=== PATIENT | female | born 1970 | race Hispanic/Latino ===

== ENCOUNTER 2020-03-06 23:07 | Emergency (ER) | payer MEDICAID, SELFPAY ==
[2020-03-06] MEDS ORDERED: ASPIRIN 325 MG TAB PO ONE (23:15)
[2020-03-06 23:37] LABS: Basophils # (Auto) 0.1 K/mm3 (0.0-0.1); Basophils % (Auto) 0.7 % (0.0-1.8); Eosinophils # (Auto) 0.3 K/mm3 (0.0-0.4); Eosinophils % (Auto) 2.5 % (0.0-4.3); Hematocrit 43.7 % (30.3-42.9); Lymphocytes # (Auto) 2.7 K/mm3 (1.2-5.4); Lymphocytes % (Auto) 24.5 % (13.4-35.0); Mean Corpuscular HGB Conc 34 % (30-34); Mean Corpuscular Volume 90 fl (79-97); Monocytes # (Auto) 0.8 K/mm3 (0.0-0.8); Monocytes % (Auto) 7.1 % (0.0-7.3); Platelet Count 223 K/mm3 (140-440); Red Blood Count 4.87 M/mm3 (3.65-5.03)
[2020-03-06 23:53] LABS: BUN/Creatinine Ratio 14; Blood Urea Nitrogen 11 mg/dL (7-17); Calcium 9.1 mg/dL (8.4-10.2); Hemolysis Index 18
--- NOTE | 2020-03-07 00:37 | XRay Report ---
CHEST 1 VIEW INDICATION: Chest Pain COMPARISON: 07/20/2015 FINDINGS: Support devices: None Heart: Normal Lungs/Pleura: No acute pulmonary or pleural findings. IMPRESSION: 1. No acute disease. No interval change. Signer Name: Koffi Nicole MD Signed: 03/07/2020 12:32 AM Workstation Name: [id number]
[2020-03-07] MEDS ORDERED: HYDROmorphone 1 MG/1 ML INJ IM ONE (07:54)
[2020-03-07] MEDS ORDERED: INSULIN REGULAR, HUMAN 100 UNIT/ML 3ML VIAL SUB-Q ONE (07:54)
[2020-03-07 08:08] VITALS: BP 159/62
--- NOTE | 2020-03-07 08:08 | Emergency Department Report ---
ED General Adult HPI - General Chief complaint: Pain General Stated complaint: LEFT LEG PAIN/CHEST PAIN PUI?: No Time Seen by Provider: 03/07/20 07:25 Source: patient, family, RN notes reviewed, old records reviewed Mode of arrival: Wheelchair Limitations: No Limitations, Physical Limitation - History of Present Illness Initial comments: The patient was evaluated in the emergency department for symptoms described in the history of present illness. He/she was evaluated in the context of the global COVID-19 pandemic, which necessitated consideration that the patient might be at risk for infection with the virus that causes COVID-19. Institutional protocols and algorithms that pertain to the evaluation of patients at risk for COVID-19 are in a state of rapid change based on information released by regulatory bodies including the CDC and federal and state organizations. These policies and algorithms were followed during the patient's care in the emergency department. Please note that these policies, procedures and recommendations changed on a rapid basis. Patient is a 49-year-old female. Past medical history includes heart disease, stent, diabetes, hypertension, hyperlipidemia, history of peripheral artery disease, status post left lower extremity above-knee amputation, episodes of phantom pain, history of cardiac catheterization in 2013. She typically follows with Dr. Knowles. Her primary care doctor is in [facility], and she reports needing a local primary care doctor. She presents to the ER today with 3 complaints. Her first complaint is typical phantom limb pain in her left lower extremity. This is sharp throbbing aching and burning, has been present since yesterday. She reports getting phantom limb pain intermittently every couple weeks. This is similar to prior episodes. Her next complaint is nontraumatic nonradiating left-sided shoulder throbbing and pain. This is been present for a few days. The patient is right-hand dominant. The pain is aching, and increases with range of motion and decreases with rest. Her next complaint is scaly and itchy rash to her bilateral palms, present for 3 months. There is no plantar foot rash that she is aware of. She denies a history of syphilis. She is currently trying to get an appointment with a local final inspector motorcyles, but reports that the group that she try to follow-up with would not take her insurance. The patient denies headache, neck pain, chest pain, abdominal pain, shortness of breath, urinary symptoms, DVT, pulmonary embolism risk factors. -: days(s), month(s) Location: left, right, upper extremity, lower extremity Severity scale (0 -10): 3 Quality: other Consistency: other Improves with: other Worsens with: other Associated Symptoms: other - Related Data Home Medications Medication Instructions Recorded Confirmed Last Taken Citalopram [Celexa] 20 mg PO QDAY 02/27/14 05/13/16 1 Day Ago ~05/12/16 20 Insulin Glargine [Lantus VIAL] 50 unit SUB-Q QHS 02/27/14 05/13/16 1 Day Ago ~05/12/16 50 Metoprolol/Hydrochlorothiazide 1 tab PO QDAY 02/27/14 05/13/16 1 Day Ago [Metoprolol HCTZ 50-25 mg TAB] ~05/12/16 1 Glipizide/Metformin HCl 1 each PO DAILY 05/13/16 05/13/16 Unknown [glipiZIDE-Metformin 5-500 mg] Previous Rx's Medication Instructions Recorded Last Taken Type Aspirin EC [Ecotrin] 325 mg PO QDAY #30 tablet 03/03/14 1 Day Ago Rx ~05/12/16 325 Clopidogrel [Plavix] 75 mg PO QDAY #30 tablet 03/03/14 1 Day Ago Rx ~05/12/16 75 Insulin Glargine [Lantus VIAL] 25 units SUB-Q BID #1 vial 03/03/14 1 Day Ago Rx ~05/12/16 25 Insulin Glulisine [Apidra] 10 units SUB-Q AC #1 vial 03/03/14 1 Day Ago Rx ~05/12/16 10 Metoprolol [Lopressor TAB] 25 mg PO BID #60 tablet 03/03/14 1 Day Ago Rx ~05/12/16 25 Rosuvastatin (Nf) [Crestor] 40 mg PO QHS #30 tablet 03/03/14 1 Day Ago Rx ~05/12/16 40 lisinopriL [Zestril TAB] 5 mg PO QDAY #30 tablet 03/03/14 1 Day Ago Rx ~05/12/16 5 Triamcinolone 0.1% [Kenalog 0.1% 1 applic TP TID #1 tube 03/07/20 Unknown Rx CREAM] Allergies Allergy/AdvReac Type Severity Reaction Status Date / Time Iodinated Contrast Media Allergy Anaphylaxis Verified 07/20/15 15:42 [Iodinated Contrast Media - IV Dye] warfarin [Warfarin] Allergy Hives Verified 07/20/15 15:42 ED Review of Systems ROS: Stated complaint: LEFT LEG PAIN/CHEST PAIN Other details as noted in HPI Constitutional: see HPI. denies: fever, malaise ENT: denies: epistaxis Respiratory: denies: cough, shortness of breath, wheezing Cardiovascular: denies: chest pain, palpitations Endocrine: no symptoms reported Gastrointestinal: denies: abdominal pain, nausea, diarrhea Genitourinary: denies: urgency, dysuria, discharge Musculoskeletal: arthralgia, myalgia. denies: joint swelling Skin: rash, lesions Neurological: denies: weakness, numbness, paresthesias Hematological/Lymphatic: denies: easy bleeding ED Past Medical Hx - Past Medical History Hx Hypertension: Yes Hx Heart Attack/AMI: Yes Hx Diabetes: Yes Hx Deep Vein Thrombosis: Yes Hx Arthritis: Yes Additional medical history: HIGH CHOLESTEROL. VASCULAR DISEASE. CAD - Surgical History Hx Coronary Stent: Yes (X 2) Hx Cholecystectomy: Yes Additional Surgical History: . Bypass- for blood clot in leg. LEFT AKA - Social History Smoking Status: Current Every Day Smoker Substance Use Type: None - Medications Home Medications: Home Medications Medication Instructions Recorded Confirmed Last Taken Type Citalopram [Celexa] 20 mg PO QDAY 02/27/14 05/13/16 1 Day Ago History ~05/12/16 20 Insulin Glargine [Lantus VIAL] 50 unit SUB-Q QHS 02/27/14 05/13/16 1 Day Ago History ~05/12/16 50 Metoprolol/Hydrochlorothiazide 1 tab PO QDAY 02/27/14 05/13/16 1 Day Ago History [Metoprolol HCTZ 50-25 mg TAB] ~05/12/16 1 Aspirin EC [Ecotrin] 325 mg PO QDAY #30 tablet 03/03/14 05/13/16 1 Day Ago Rx ~05/12/16 325 Clopidogrel [Plavix] 75 mg PO QDAY #30 tablet 03/03/14 05/13/16 1 Day Ago Rx ~05/12/16 75 Insulin Glargine [Lantus VIAL] 25 units SUB-Q BID #1 vial 03/03/14 05/13/16 1 Day Ago Rx ~05/12/16 25 Insulin Glulisine [Apidra] 10 units SUB-Q AC #1 vial 03/03/14 05/13/16 1 Day Ago Rx ~05/12/16 10 Metoprolol [Lopressor TAB] 25 mg PO BID #60 tablet 03/03/14 05/13/16 1 Day Ago Rx ~05/12/16 25 Rosuvastatin (Nf) [Crestor] 40 mg PO QHS #30 tablet 03/03/14 05/13/16 1 Day Ago Rx ~05/12/16 40 lisinopriL [Zestril TAB] 5 mg PO QDAY #30 tablet 03/03/14 05/13/16 1 Day Ago Rx ~05/12/16 5 Glipizide/Metformin HCl 1 each PO DAILY 05/13/16 05/13/16 Unknown History [glipiZIDE-Metformin 5-500 mg] Triamcinolone 0.1% [Kenalog 0.1% 1 applic TP TID #1 tube 03/07/20 Unknown Rx CREAM] ED Physical Exam - General Limitations: No Limitations General appearance: alert, in no apparent distress - Head Head exam: Present: atraumatic, normocephalic - Eye Eye exam: Present: normal appearance, EOMI. Absent: nystagmus - ENT ENT exam: Present: normal exam, normal orophraynx, mucous membranes moist, normal external ear exam - Neck Neck exam: Present: normal inspection, full ROM. Absent: tenderness, meningismus - Respiratory Respiratory exam: Present: normal lung sounds bilaterally. Absent: respiratory distress, wheezes, rales, rhonchi, stridor, chest wall tenderness, accessory muscle use, decreased breath sounds - Cardiovascular Cardiovascular Exam: Present: regular rate, normal rhythm, normal heart sounds. Absent: bradycardia, tachycardia, irregular rhythm, systolic murmur, diastolic murmur, rubs, gallop - GI/Abdominal GI/Abdominal exam: Present: soft, normal bowel sounds. Absent: distended, tenderness, guarding, rebound, rigid - Extremities Exam Extremities exam: Present: normal inspection (Status post left above-knee amputation), full ROM, pedal edema (1+ edema in the right lower extremity.), other (2+ pulses noted in the bilateral upper and right lower extremity. There is no long bony tenderness. The pelvis is stable. The muscular compartments are soft. There is no left-sided shoulder tenderness. There is full range of motion of the left shoulder . There is no redness, pus or streaking around the left shoulder). Absent: calf tenderness - Back Exam Back exam: Present: normal inspection, full ROM. Absent: tenderness, CVA tenderness (R), CVA tenderness (L), paraspinal tenderness, vertebral tenderness - Neurological Exam Neurological exam: Present: alert, oriented X3, other (No facial droop. Tongue midline. Extraocular movements intact bilaterally. Facial sensation intact to light touch in V1, V2, V3 distribution bilaterally. 5 and a 5 strength in 4 extremities. Sensation intact to light touch in 4 extremities.) - Psychiatric Psychiatric exam: Present: normal affect, normal mood - Skin Skin exam: Present: warm, rash, other (Patient found to have a nontender nonblanching nontender macular rash on her bilateral palms, with dry scaly skin. No lesions noted on the soles.). Absent: cyanosis, diaphoretic, urticaria, vesicles, petechiae, pallor, abrasion, ecchymosis ED Course Vital Signs 03/06/20 03/06/20 03/07/20 23:09 23:11 07:18 Temperature 98.3 F 98.3 F 98.2 F Pulse Rate 112 H 112 H 98 H Respiratory 18 18 16 Rate Blood Pressure 200/83 200/83 Blood Pressure 157/95 [Right] O2 Sat by Pulse 99 99 97 Oximetry 03/07/20 08:07 Temperature Pulse Rate 93 H Respiratory 17 Rate Blood Pressure Blood Pressure 159/62 [Right] O2 Sat by Pulse 97 Oximetry - Reevaluation(s) Reevaluation #1: 03/07/20 08:14 Differential diagnosis, including but not limited to: Phantom limb pain, shoulder arthritic pain, diabetic arthropathy, diabetic tendinitis, hyperglycemia, GERD, gastritis, hiatal hernia, pneumonia Assessment and plan: 49-year-old female, who is afebrile with reassuring vital signs, with resolved tachycardia, who is not currently tachypneic, or hypoxic, who is low risk by Wells criteria for pulmonary embolism acutely, with a complaint of phantom limb pain, bilateral palmar rash, and nontraumatic left- sided shoulder pain. Phantom limb pain will be treated supportively. Shoulder examination shows full range of motion, without redness, pus, streaking or tenderness. Her shoulder examination is not consistent with cellulitis, infection, dislocation, or septic joint. Patient initially denied chest pain to me. Her EKG is unchanged from prior, and she has had 3- troponins. However, she endorsed to the nurse that she was having left superior breast/chest discomfort, which is now resolved. I went back to reevaluate the patient, and she states that this chest discomfort was associated with her phantom limb pain. There is no vomiting, diaphoresis or exertional shortness of breath, and is e ssentially resolved at this time. Heart score reviewed and appreciated. We will discuss with her primary mixer operator raw salt given history of chest pressure. Repeat EKG is pending. Troponin negative x3. Hyperglycemia improved, glucose 292 now, without evidence of anion gap, this is a chronic medical condition can be followed up as an outpatient. Her bilateral palmar rash has been present for months, and is nontender and does not appear to be infected, and does not appear to represent an emergent medical condition, this can be followed up by an outpatient primary care doctor or final inspector motorcyles Reevaluation #2: 03/07/20 08:25 EKGs essentially unchanged x2 Reevaluation #3: 03/07/20 09:35 Patient observed in this department for prolonged period of time without decompensation. Discussed with cardiology on-call, Jacob Elliott, working with Dr Houston We agree that based off of the history and physical, pertinent laboratory studies and EKG findings, patient suitable to follow-up as an outpatient with primary care and/or cardiology. ED Medical Decision Making - Lab Data Result diagrams: 03/06/20 23:16 03/06/20 23:16 Vital Signs 03/06/20 03/06/20 03/07/20 23:09 23:11 07:18 Temperature 98.3 F 98.3 F 98.2 F Pulse Rate 112 H 112 H 98 H Respiratory 18 18 16 Rate Blood Pressure 200/83 200/83 Blood Pressure 157/95 [Right] O2 Sat by Pulse 99 99 97 Oximetry 03/07/20 08:07 Temperature Pulse Rate 93 H Respiratory 17 Rate Blood Pressure Blood Pressure 159/62 [Right] O2 Sat by Pulse 97 Oximetry Lab Results 03/06/20 03/06/20 03/07/20 Range/Units 23:16 23:16 02:41 WBC 11.2 H (4.5-11.0) K/mm3 RBC 4.87 (3.65-5.03) M/mm3 Hgb 15.0 H (10.1-14.3) gm/dl Hct 43.7 H (30.3-42.9) % MCV 90 (79-97) fl MCH 31 (28-32) pg MCHC 34 (30-34) % RDW 13.0 L (13.2-15.2) % Plt Count 223 (140-440) K/mm3 Lymph % (Auto) 24.5 (13.4-35.0) % Laurel % (Auto) 7.1 (0.0-7.3) % Eos % (Auto) 2.5 (0.0-4.3) % Baso % (Auto) 0.7 (0.0-1.8) % Lymph # (Auto) 2.7 (1.2-5.4) K/mm3 Laurel # (Auto) 0.8 (0.0-0.8) K/mm3 Eos # (Auto) 0.3 (0.0-0.4) K/mm3 Baso # (Auto) 0.1 (0.0-0.1) K/mm3 Seg Neutrophils % 65.2 (40.0-70.0) % Seg Neutrophils # 7.3 (1.8-7.7) K/mm3 Sodium 135 L (137-145) mmol/L Potassium 4.0 (3.6-5.0) mmol/L Chloride 95.9 L (98-107) mmol/L Carbon Dioxide 26 (22-30) mmol/L Anion Gap 17 mmol/L BUN 11 (7-17) mg/dL Creatinine 0.8 (0.6-1.2) mg/dL Estimated GFR > 60 ml/min BUN/Creatinine Ratio 14 % Glucose 429 H (65-100) mg/dL POC Glucose (70-105) Calcium 9.1 (8.4-10.2) mg/dL Troponin T < 0.010 < 0.010 (0.00-0.029) ng/mL 03/07/20 03/07/20 Range/Units 05:52 08:17 WBC (4.5-11.0) K/mm3 RBC (3.65-5.03) M/mm3 Hgb (10.1-14.3) gm/dl Hct (30.3-42.9) % MCV (79-97) fl MCH (28-32) pg MCHC (30-34) % RDW (13.2-15.2) % Plt Count (140-440) K/mm3 Lymph % (Auto) (13.4-35.0) % Laurel % (Auto) (0.0-7.3) % Eos % (Auto) (0.0-4.3) % Baso % (Auto) (0.0-1.8) % Lymph # (Auto) (1.2-5.4) K/mm3 Laurel # (Auto) (0.0-0.8) K/mm3 Eos # (Auto) (0.0-0.4) K/mm3 Baso # (Auto) (0.0-0.1) K/mm3 Seg Neutrophils % (40.0-70.0) % Seg Neutrophils # (1.8-7.7) K/mm3 Sodium (137-145) mmol/L Potassium (3.6-5.0) mmol/L Chloride (98-107) mmol/L Carbon Dioxide (22-30) mmol/L Anion Gap mmol/L BUN (7-17) mg/dL Creatinine (0.6-1.2) mg/dL Estimated GFR ml/min BUN/Creatinine Ratio % Glucose (65-100) mg/dL POC Glucose 292 H (70-105) Calcium (8.4-10.2) mg/dL Troponin T < 0.010 (0.00-0.029) ng/mL - EKG Data -: EKG Interpreted by Ut Rate: tachycardia - EKG Data 03/07/20 08:13 Sinus rhythm, tachycardia, 106 bpm, QTC prolonged, poor R wave progression, normal axis, not a STEMI, unchanged from prior EKG from April 2016 - Radiology Data Radiology results: report reviewed, image reviewed X-ray of the chest is negative for acute disease Critical care attestation.: If time is entered above; I have spent that time in minutes in the direct care of this critically ill patient, excluding procedure time. ED Disposition Clinical Impression: Rash, Hyperglycemia, Left leg pain, History of chest pain Left shoulder pain Qualifiers: Chronicity: acute Qualified Code(s): M25.512 - Pain in left shoulder Disposition: DC-01 TO HOME OR SELFCARE Is pt being admited?: No Does the pt Need Aspirin: No Condition: Stable Additional Instructions: Rest, avoid heavy lifting, and avoid strenuous physical activities. Continue current outpatient medications. Follow-up with your primary care doctor or mixer operator raw salt for left shoulder pain, history of left chest discomfort, and left phantom limb pain, within the next 3 to 5 days. Please make certain to continue current outpatient medications, and remain com pliant with diabetic medications and diabetic diet. Follow-up with a final inspector motorcyles within the next month. Please return to the emergency room right away with new pain, worsened pain, migration of pain, projectile vomiting, change in mental status, confusion, inability to tolerate liquid feeds, new, worsened or different symptoms not present on the initial emergency room evaluation patient may take [id number] acetaminophen, alternate with [id number] ibuprofen, as needed for physical pain. She may also alternate ice packs and heat packs, and participate with outpatient physical therapy, rest, ice, compression, elevation exercises to assist in extremity pain and discomfort. Prescriptions: Triamcinolone 0.1% [Kenalog 0.1% CREAM] 1 applic TP TID #1 tube Referrals: ENRRIQUE KNOWLES MD [Staff Physician] - 3-5 Days DOUG LAMAR MD [Staff Physician] - 3-5 Days
== END 2020-03-07 09:47 | disposition home or self-care (01) ==
LOC: ED 23:07
DX: M25.512 Pain in left shoulder (principal); E11.65 Type 2 diabetes mellitus with hyperglycemia; R07.89 Other chest pain; R21 Rash and other nonspecific skin eruption; M79.605 Pain in left leg; I10 Essential (primary) hypertension; I25.2 Old myocardial infarction; M19.91 Primary osteoarthritis, unspecified site; Z86.718 Personal history of other venous thrombosis and embolism; Z90.49 Acquired absence of other specified parts of digestive tract; Z98.890 Other specified postprocedural states; F17.200 Nicotine dependence, unspecified, uncomplicated; Z79.4 Long term (current) use of insulin; Z79.899 Other long term (current) drug therapy; Z88.8 Allergy status to other drugs, medicaments and biological substances
CPT/HCPCS: 36415; 71045; 80048; 82962; 84484; 85025; 93005; 96372; 99284; J1170